=== PATIENT | male | born 1990 | race Caucasian/White ===

== ENCOUNTER 2016-07-31 10:50 | Emergency (ER) | payer SELFPAY | END 2016-07-31 11:54 | disposition left against medical advice (07) | LOC: UCCORT 10:50 | DX: R51 Headache (principal); R10.9 Unspecified abdominal pain; Z53.21 Procedure and treatment not carried out due to patient leaving prior to being seen by health care provider ==

== ENCOUNTER 2017-03-19 11:25 | Emergency (ER) | payer SELFPAY ==
[2017-03-19 13:39] VITALS: BP 140/85
--- NOTE | 2017-03-19 13:52 | UC ---
Respiratory Complaint HPI - HPI Summary HPI Summary: 26 year old male with cough for 4 weeks that is worsening. Productive cough, congestion for last couple weeks. States sx progressively getting worse. Feels SOB after coughing. Denies fever, but c/o chills. NO meds taken. Uses drugs almost daily and homeless. Here with mom. Awaiting inpatient drug rehab at this time. [ End ] [ End ] - History of Current Complaint Chief Complaint: UCRespiratory Stated Complaint: COUGH,CONGESTION Time Seen by Provider: 03/19/17 13:33 Hx Obtained From: Patient, Family/Document Image Technician - mom Onset/Duration: Gradual Onset Timing: Constant Severity Initially: Moderate Severity Currently: Moderate Character: Cough: Productive Aggravating Factors: Nothing Alleviating Factors: Nothing Associated Signs And Symptoms: Positive: Nasal Congestion - Allergies/Home Medications Allergies/Adverse Reactions: Allergies Allergy/AdvReac Type Severity Reaction Status Date / Time No Known Allergies Allergy Verified 03/19/17 13:31 PMH/Surg Hx/FS Hx/Imm Hx Previously Healthy: Yes - Surgical History Surgical History: Yes Surgery Procedure, Year, and Place: right arm laceration repair 11/2012 - Family History Known Family History: Positive: Hypertension - Social History Occupation: Unemployed Lives: Alone - homeless Alcohol Use: None Substance Use Type: Other Substance Use Comment - Amount & Last Used: Yesenia/Heroin 0200 today 03/19/17 Smoking Status (MU): Current Every Day Smoker Type: Cigarettes Amount Used/How Often: 1 ppd Length of Time of Smoking/Using Tobacco: age 11 Household Exposure Type: Cigarettes - Immunization History Most Recent Influenza Vaccination: none Most Recent Tetanus Shot: 2012 Review of Systems Constitutional: Fatigue ENT: Sore Throat, Ear Ache, Nasal Discharge, Sinus Congestion, Sinus Pain/ Tenderness Respiratory: Cough Is Patient Immunocompromised?: No All Other Systems Reviewed And Are Negative: Yes Physical Exam Triage Information Reviewed: Yes Appearance: Well-Appearing, No Pain Distress, Well-Nourished, Thin Vital Signs: Initial Vital Signs Temp 98.2 F 03/19/17 13:32 Pulse 104 03/19/17 13:32 Resp 20 03/19/17 13:32 BP 140/85 03/19/17 13:32 Pulse Ox 98 03/19/17 13:32 Vital Signs Reviewed: Yes Eye Exam: Normal ENT Exam: Normal Dental Exam: Normal Neck exam: Normal Neck: Positive: 1 Respiratory Exam: Normal Cardiovascular Exam: Normal Musculoskeletal Exam: Normal Neurological Exam: Normal Psychological Exam: Normal Skin Exam: Normal Skin: Positive: Other - track tsai on upper extremities UC Diagnostic Evaluation - Laboratory O2 Sat by Pulse Oximetry: 98 Respiratory Course/Dx - Course Course Of Treatment: IMPRESSION: NO ACTIVE CARDIOPULMONARY DISEASE. With being high risk for being homeless and IVDA will treat. Wished best of luck going to rehab - Differential Dx/Diagnosis Differential Diagnosis/HQI/PQRI: Bronchitis, Lower Resp Infection, Sinusitis Provider Diagnoses: Bronchitis Discharge - Discharge Plan Condition: Good Disposition: HOME Prescriptions: Amoxicillin/Clavulanate TAB* [Augmentin TAB 875*] 875 mg PO BID #20 tab Patient Education Materials: Acute Bronchitis (ED) Referrals: No Primary Care Phys,NOPCP [Primary Care Provider] - Additional Instructions: Good luck with rehab and discontinuing drugs.
--- NOTE | 2017-03-19 14:31 | RAD ---
HISTORY: Cough COMPARISONS: January 30, 2014 VIEWS: 4: Frontal dual-energy and lateral views of the chest. FINDINGS: CARDIOMEDIASTINAL SILHOUETTE: The cardiomediastinal silhouette is normal. PREETI: The preeti are normal. PLEURA: The costophrenic angles are sharp. No pleural abnormalities are noted. LUNG PARENCHYMA: The lungs are clear. ABDOMEN: The upper abdomen is clear. There is no subphrenic gas. BONES AND SOFT TISSUES: No bone or soft tissue abnormalities are noted. OTHER: None. IMPRESSION: NO ACTIVE CARDIOPULMONARY DISEASE.
== END 2017-03-19 14:34 | disposition home or self-care (01) ==
LOC: UCCORT 11:25
DX: J40 Bronchitis, not specified as acute or chronic (principal); R09.81 Nasal congestion; F17.210 Nicotine dependence, cigarettes, uncomplicated
CPT/HCPCS: 71020; 99212; G0463

== ENCOUNTER 2017-09-07 09:23 | Emergency (ER) | payer MEDICAID ==
[2017-09-07 10:02] VITALS: BP 119/74
--- NOTE | 2017-09-07 11:35 | ED ---
Throat Pain/Nasal Congestion - HPI Summary HPI Summary: 26 yr old male with the complaint of cough for a week, runny nose. Cough is productive of yellow and brown sputum. No fever. No dyspnea. No CP. He states he is a smoker. No other complaints. - History of Current Complaint Chief Complaint: UCRespiratory Time Seen by Provider: 09/07/17 11:14 - Allergies/Home Medications Allergies/Adverse Reactions: Allergies Allergy/AdvReac Type Severity Reaction Status Date / Time No Known Allergies Allergy Verified 03/19/17 13:31 Home Medications: Home Medications Buprenorphine HCl/Naloxone HCl [Suboxone 8 mg-2 mg Sl Film] 16 mg PO DAILY 09/07 [History Confirmed 09/07/17] Prazosin HCl 1 mg PO DAILY 09/07/17 [History Confirmed 09/07/17] Sertraline HCl [Zoloft] 50 mg PO DAILY 09/07/17 [History Confirmed 09/07/17] Trazodone HCl 50 mg PO DAILY 09/07/17 [History Confirmed 09/07/17] buPROPion HCl [Wellbutrin Sr] 100 mg PO DAILY 09/07/17 [History Confirmed ] PMH/Surg Hx/FS Hx/Imm Hx Cardiovascular History: Reports: Hx Hypertension - Surgical History Surgery Procedure, Year, and Place: right arm laceration repair 11/2012 Infectious Disease History: No Infectious Disease History: Denies: Traveled Outside the [place] in Last 30 Days - Family History Known Family History: Positive: Hypertension - Social History Alcohol Use: None Substance Use Type: Reports: None Substance Use Comment - Amount & Last Used: Yesenia/Heroin 0200 today 03/19/17 Smoking Status (MU): Current Every Day Smoker Type: Cigarettes Amount Used/How Often: 1 ppd Length of Time of Smoking/Using Tobacco: age 11 Review of Systems Constitutional: Negative Positive: Nasal Discharge Positive: Cough All Other Systems Reviewed And Are Negative: Yes Physical Exam Triage Information Reviewed: Yes Vital Signs On Initial Exam: Initial Vitals Temp Pulse Resp BP Pulse Ox 98.1 F 58 14 119/74 99 09/07/17 09:54 09/07/17 09:54 09/07/17 09:54 09/07/17 09:54 09/07/17 09:54 Vital Signs Reviewed: Yes Appearance: Positive: Well-Appearing, No Pain Distress Skin: Positive: Warm, Skin Color Reflects Adequate Perfusion Head/Face: Positive: Normal Head/Face Inspection Eyes: Positive: EOMI, GISSEL ENT: Positive: Pharyngeal erythema, TM dull, TM red - right Neck: Positive: Nontender Respiratory/Lung Sounds: Positive: Clear to Auscultation, Breath Sounds Present. Negative: Rales, Rhonchi, Stridor, Wheezes Cardiovascular: Positive: RRR. Negative: Murmur Abdomen Description: Positive: Nontender Musculoskeletal: Positive: Strength/ROM Intact Neurological: Positive: Sensory/Motor Intact, Alert, Oriented to Person Place, Time, CN Intact II-III Psychiatric: Positive: Normal - Catrina Coma Scale Best Eye Response: 4 - Spontaneous Best Motor Response: 6 - Obeys Commands Best Verbal Response: 5 - Oriented Coma Scale Total: 15 Diagnostics - Vital Signs Vital Signs Temp Pulse Resp BP Pulse Ox 09/07/17 09:54 98.1 F 58 14 119/74 99 - Laboratory Lab Statement: Any lab studies that have been ordered have been reviewed, and results considered in the medical decision making process. EENT Course/Dx - Course Course Of Treatment: 26 yr old male with right OM, and coughing. Plan Rx with Zithromax. - Diagnoses Provider Diagnoses: Otitis media, Upper respiratory infection Discharge - Sign-Out/Discharge Documenting (check all that apply): Discharge/Admit/Transfer - Discharge Plan Condition: Good Disposition: HOME Prescriptions: Azithromycin TAB* [Zithromax TAB (Z-TOYIN) 250 mg #6 tabs] 2 tab PO .TODAY, THEN 1 DAILY #1 toyin Patient Education Materials: Ear Infection (ED), Upper Respiratory Infection ( ED) Referrals: No Primary Care Phys,NOPCP [Primary Care Provider] - [facility] [Outside] - 3 Days - Billing Disposition and Condition Condition: GOOD Disposition: HOME
== END 2017-09-07 11:33 | disposition home or self-care (01) ==
LOC: UCCORT 09:23
DX: H66.91 Otitis media, unspecified, right ear (principal); J06.9 Acute upper respiratory infection, unspecified; F17.210 Nicotine dependence, cigarettes, uncomplicated; I10 Essential (primary) hypertension
CPT/HCPCS: 99212; G0463

== ENCOUNTER 2019-08-30 11:40 | Emergency (ER) | payer SELFPAY ==
[2019-08-30 11:53] VITALS: BP 129/78
[2019-08-30] MEDS ORDERED: Lidocaine 1% MPF 5 ML VIAL INJ ONE (11:56)
== END 2019-08-30 12:53 | disposition home or self-care (01) ==
LOC: UCCORT 11:40

== ENCOUNTER 2022-12-19 18:53 | Inpatient (IN) ==
[2022-12-19] MEDS ORDERED: Lactated Ringers SEPSIS* BAG 2,190 ML IV ONE (20:40)
[2022-12-19] MEDS ORDERED: Vancomycin 1,000 MG in NS 0.9% 250 ml 250 ML IVPB ONE (20:56)
[2022-12-19] MEDS ORDERED: Acetaminophen IV 1 GM/100ML 1,000 MG/100 ML BAG IV ONE (21:02)
[2022-12-19] MEDS ORDERED: Piperacillin/Tazobac 3.375 BAG 3.375 GM/100 ML BAG IV ONE (21:03)
[2022-12-19 21:08] LABS: ABS Basophils 0.1 10^3/uL (0.0-0.1); ABS Lymphocytes 1.7 10^3/uL (1.0-4.8); ABS Monocytes 1.2 10^3/uL (0.0-1.1); ABS Neutrophils 10.9 10^3/uL (1.5-7.6); ABS Nucleated RBC 0.01 10^3/ul; Eosinophil % 0.2 %; Hematocrit 34.3 % (38-53); Lymphocyte % 12.4 %; Mean Corpuscular Hemoglobin 28.9 pg (27-33); Mean Corpuscular Volume 82.4 fL (80-97); Mean Platelet Volume 7.2 fL (7.5-11.2); Nucleated Red Blood Cells % 0.1 /100 WBC (0.0-0.4); Platelet Count 257 10^3/uL (150-450); Red Blood Count 4.17 10^6/uL (4.06-5.63); Red Cell Distribution Width 13.6 % (12-17); White Blood Count 13.8 10^3/uL (3.6-10.2)
[2022-12-19] MEDS ORDERED: Lidocaine 2% PF 5 ML VIAL INJ ONE ×2 (21:19→22:41)
[2022-12-19] MEDS ORDERED: Morphine 4 MG/ML VIAL (1 ml) IV ONE (21:21)
[2022-12-19 21:26] LABS: Activated Partial Thrombo Time 38.1 seconds (26.0-38.0); INR 1.38 (0.83-1.13)
[2022-12-19 21:28] LABS: Albumin 3.6 g/dL (3.2-5.2); Albumin/Globulin Ratio 1.1 (1-3); C Reactive Protein 342.13 mg/L (<8.01); Creatinine, Serum 0.76 mg/dL (0.67-1.17); Globulin 3.3 g/dL (2-4); Total Bilirubin 0.3 mg/dL (0.2-1.0); Total Protein 6.9 g/dL (6.4-8.9); eGFR CKD-EPI 122.5 (>60)
[2022-12-19 21:29] LABS: Urine Appearance Cloudy; Urine Bilirubin Negative (Negative); Urine Blood 2+ (Negative); Urine Color Yellow; Urine Glucose Negative (Negative); Urine Ketones Negative (Negative); Urine Nitrite Negative (Negative); Urine Protein 2+(100 mg/dL) (Negative); Urine Urobilinogen Negative (Negative)
[2022-12-19 21:55] LABS: Urine Bacteria Absent (Absent); Urine Red Blood Cell 3+(>10/hpf) (Absent); Urine Sperm Present (Absent); Urine White Blood Cell 3+(>20/hpf) (Absent)
[2022-12-19 22:19] LABS: High Sensitivity Troponin 1 Hr 4 pg/mL (<20)
[2022-12-19 22:46] LABS: Erythrocyte Sed Rate 87 mm/Hr (0-14)
[2022-12-19 23:54] LABS: Body Fluid WBC 1388 /mcL
[2022-12-20 00:14] LABS: Body Fluid Appearance Bloody; Body Fluid Color Red; Body Fluid Source Synovial Fluid
[2022-12-20 01:04] LABS: Body Fluid Mono 10 %; Body Fluid Total Cells Counted 200
[2022-12-20] MEDS ORDERED: Ondansetron 4 mg VIAL 2 MG/ML 2 ml VIAL IV PRN ×2 (01:19→08:09)
[2022-12-20] MEDS ORDERED: Vancomycin per Pharmacy 1 EA NOTE FOLLOW UP SCH (02:00)
[2022-12-20] MEDS: Vancomycin 1,250 MG in NS 0.9% 250 ml 250 ML IVPB SCH ×4 (05:45→22:04)
[2022-12-20] MEDS ORDERED: Vancomycin 1,250 MG in NS 0.9% 250 ml 250 ML IVPB SCH (06:00)
[2022-12-20] MEDS ORDERED: fentaNYL 250 mcg/5 ml 50 MCG/ML 5 ml VIAL (250 MCG) ONE (07:51)
[2022-12-20] MEDS ORDERED: Rocuronium 50 mg VIAL 10 mg/ml 5 ml VIAL (50 mg) ONE ×2 (07:51→08:50)
[2022-12-20] MEDS ORDERED: Midazolam 2 mg/2 ml VIAL 1 mg/ml 2 ml VIAL (2 mg) ONE (07:51)
[2022-12-20] MEDS ORDERED: Dexamethasone IV 4 MG/ML VIAL 1 ml VIAL ONE (07:52)
[2022-12-20] MEDS ORDERED: Lidocaine 2% PF 5 ML VIAL ONE (07:52)
[2022-12-20] MEDS ORDERED: Propofol 10 MG/ML 20 ML BTL ONE (07:52)
[2022-12-20] MEDS ORDERED: Ondansetron 4 mg VIAL 2 MG/ML 2 ml VIAL ONE (07:52)
[2022-12-20] MEDS ORDERED: Acetaminophen IV 1 GM/100ML 1,000 MG/100 ML BAG IV PRN (08:09)
[2022-12-20] MEDS ORDERED: Naloxone 0.4 mg VIAL 0.4 mg/ml 1 ml VIAL IV PRN (08:09)
[2022-12-20] MEDS ORDERED: fentaNYL 100 mcg/2 ml 50 MCG/ML VIAL IV PRN (08:09)
[2022-12-20] MEDS ORDERED: Lidocaine 1% w EPI 1:100,000 MDV 20 ML VIAL ONE (08:10)
[2022-12-20] MEDS ORDERED: Bupivacaine 0.25% SDV 30 ML ONE (08:10)
[2022-12-20] MEDS ORDERED: fentaNYL 100 mcg/2 ml 50 MCG/ML VIAL ONE (09:38)
[2022-12-20] MEDS ORDERED: Sugammadex 500 MG/5 ML 5 ml VIAL IV PUSH ONE (09:52)
[2022-12-20] MEDS ORDERED: HYDROmorphone 1 MG/1 ML SYRINGE ONE (10:10)
[2022-12-20] MEDS ORDERED: Acetaminophen IV 1 GM/100ML 1,000 MG/100 ML BAG IV ONE (10:12)
[2022-12-20] MEDS: HYDROmorphone 1 MG/1 ML SYRINGE IV PRN ×2 (10:28→10:42)
[2022-12-21] MEDS ORDERED: Vancomycin Trough Check NOTE FOLLOW UP ONE (05:30)
[2022-12-21 06:02] LABS: Hematocrit 35.5 % (38-53); Mean Corpuscular Hemoglobin 27.7 pg (27-33); Mean Corpuscular Hgb Conc 33.8 g/dL (31-36); Mean Corpuscular Volume 81.8 fL (80-97); Platelet Count 351 10^3/uL (150-450); Red Blood Count 4.34 10^6/uL (4.06-5.63); Red Cell Distribution Width 13.5 % (12-17); White Blood Count 17.1 10^3/uL (3.6-10.2)
[2022-12-21 06:15] LABS: Albumin 3.2 g/dL (3.2-5.2); Calcium 9.1 mg/dL (8.6-10.3); Creatinine, Serum 0.59 mg/dL (0.67-1.17); Globulin 3.3 g/dL (2-4); Potassium 4.5 mmol/L (3.5-5.0); Total Bilirubin 0.3 mg/dL (0.2-1.0); Total Protein 6.5 g/dL (6.4-8.9); eGFR CKD-EPI 132.2 (>60)
[2022-12-21] MEDS: Vancomycin 1,250 MG in NS 0.9% 250 ml 250 ML IVPB SCH (06:30)
[2022-12-21 06:38] LABS: ABS Lymphocytes 2.6 10^3/uL (1.0-4.8); ABS Monocytes 1.2 10^3/uL (0.0-1.1); ABS Neutrophils 13.3 10^3/uL (1.5-7.6); ABS Nucleated RBC 0.01 10^3/ul; Lymphocyte % 15.1 %
[2022-12-21] MEDS ORDERED: Enoxaparin 40 MG/0.4 ML SYR SUBCUT SCH (09:30)
[2022-12-21 10:38] VITALS: BP 136/81
[2022-12-22 10:55] LABS: Glucose, BF 3 mg/dL
[2022-12-24] MEDS ORDERED: Vancomycin Trough Check NOTE FOLLOW UP ONE (05:30)
== END 2022-12-21 14:36 | disposition left against medical advice (07) | DRG 710 ==
LOC: ED 18:53 → MEDTELE 20:36 → EDHOLD 12-20 01:19 → SUATTDRO 12-20 01:19 → MEDTELE 12-20 03:22
PROVIDERS: ADMIT Student in an Organized Health Care Education/Training Program; ATTEND Internal Medicine Hematology & Oncology